=== PATIENT | male | born 1975 | race Caucasian/White ===

== ENCOUNTER 2020-03-24 04:28 | Emergency (ER) | payer BC ==
[~2020-03-24] VITALS: Ht 182.9 cm; Wt 131.1 kg
--- NOTE | 2020-03-24 04:52 | Emergency Department Note ---
History of Present Illnes History of Present Illness Chief Complaint: General Medicine Complaints History of Present Illness This is a 44 year old male arrives to the ED with complaints of pain along her left eye medial canthus. Patient states feels like something stuck in his eye. Chief Complaint Comment states he woke up with pain in his left eye 45 min ago presents with puffy red eyes seen by dr rowan Historian: Patient Arrival Mode: Car Onset (how long ago): hour(s) Radiation: Reports non-radiation Severity: mild Onset quality: sudden Duration (how long): hour(s) Timing of current episode: constant Progression: unchanged Chronicity: new Context: Denies recent illness, Denies trauma/injury Past Medical/Family History Physician Review I have reviewed the patient's past medical and family history. Any updates have been documented here. Past Medical History Recent Fever: No Clinical Suspicion of Infectio: No New/Unexplained Change in Ment: No Social History Smoking Cessation: Current every day smoker Review of Systems Review of Systems Constitutional: Reports no symptoms EENTM: Reports as per HPI, Reports eye pain, Reports tearing; Denies blurred vision, Denies double vision, Denies ear discharge Cardiovascular: Reports no symptoms Respiratory: Reports no symptoms Gastrointestinal: Reports no symptoms Genitourinary: Reports no symptoms Musculoskeletal: Reports no symptoms Integumentary: Reports no symptoms Neurological: Reports no symptoms Psychological: Reports no symptoms Endocrine: Reports no symptoms Hematological/Lymphatic: Reports no symptoms Physical Exam Related Data Allergies: Coded Allergies: Penicillins (Verified Allergy, Unknown, 03/24/20) Sulfa (Sulfonamide Antibiotics) (Verified Allergy, Unknown, 03/24/20) Triage Vital Signs Vital Signs Date Time Temp Pulse Resp B/P (MAP) Pulse Ox O2 Delivery O2 Flow Rate FiO2 03/24/20 04:32 97.6 81 18 143/98 100 Vital signs reviewed: Yes Physical Exam CONSTITUTIONAL Constitutional: Present well-developed, Present well-nourished HENT HENT: Present normocephalic, Present atraumatic, Present oropharynx clear /moist, Present nose normal HENT L/R: Present left ext ear normal, Present right ext ear normal EYES Eyes: Reports PERRL, Reports conjunctivae normal, Reports other (left eye stye noted over the medial canthus, full normal range of motion without pain, no orbital or preseptal cellulitis noted) NECK Neck: Present ROM normal PULMONARY Pulmonary: Present effort normal, Present breath sounds normal CARDIOVASCULAR Cardiovascular: Present regular rhythm, Present heart sounds normal, Present capillary refill normal, Present normal rate GASTROINTESTINAL Abdominal: Present soft, Present nontender, Present bowel sounds normal GENITOURINARY Genitourinary: Present exam deferred SKIN Skin: Present warm, Present dry MUSCULOSKELETAL Musculoskeletal: Present ROM normal NEUROLOGICAL Neurological: Present alert, Present oriented x 3, Present no gross motor or sensory deficits PSYCHOLOGICAL Psychological: Present mood/affect normal, Present judgement normal Assessment & Plan Medical Decision Making MDM 44-year-old well-appearing male arrives the ED with left eye pain, no concerns of orbital wall cellulitis, stye noted over superior medial canthus of left eye spoke to patient length about the importance of warm compressions every 4-6 hours. Prescription for Theramycin topical ointment given encouraged ophthalmology follow-up as an outpatient. Assessment & Plan Final Impression: (1) Stye Depart Disposition: HOME, SELF-CARE Last Vital Signs Date Time Temp Pulse Resp B/P (MAP) Pulse Ox O2 Delivery O2 Flow Rate FiO2 // 04:32 97.6 81 18 143/98 100 JOSIAS ROWAN DO Mar 24, 2020 04:52
== END 2020-03-24 04:40 | disposition home or self-care (01) ==
LOC: ER 04:38
DX: H00.016 Hordeolum externum left eye, unspecified eyelid (principal)
CPT/HCPCS: 99282